=== PATIENT | male | born 1950 | race Caucasian/White ===

== ENCOUNTER 2016-09-15 07:33 | Day surgery (SDC) | payer OTHER ==
[2016-09-09 11:52] VITALS: BMI 29.6
[2016-09-15] MEDS ORDERED: PROPOFOL 20 ML ONE ×2 (08:08)
[2016-09-15 09:38] VITALS: PULSE 66; TEMP 98
[2016-09-15 09:56] VITALS: BP 131/65
== END 2016-09-15 10:15 | disposition home or self-care (01) ==
LOC: FASU-ENDO 07:33
PROVIDERS: ATTEND Internal Medicine Gastroenterology
PROC: 0DJD8ZZ Inspection of Lower Intestinal Tract, Via Natural or Artificial Opening Endoscopic (ICD-10-PCS; principal; 2016-09-15 09:08)
DX: Z12.11 Encounter for screening for malignant neoplasm of colon (principal); K57.30 Diverticulosis of large intestine without perforation or abscess without bleeding